=== PATIENT | male | born 1955 | race Caucasian/White ===

== ENCOUNTER 2017-05-08 13:13 | Outpatient (CLI) | payer BC ==
--- NOTE | 2017-05-08 15:46 | RAD ---
EXAM: FOUR VIEWS CERVICAL SPINE 05/08/17 HISTORY: Cervical radiculopathy. Cervical fusion six years ago. COMPARISON: 12/09/13 FINDINGS: Four views cervical spine demonstrate straightening of the normal cervical lordosis. There is an ant erior fusion plate with transvertebral screw at C3, C4 and C5 through C7. No perihardware lucency. D isc prosthesis at C3-C4, C5-C6 and C6-7. On the swimmer's view, the cervicothoracic junction appears to be unremarkable. Predental space is normal. Limited evaluation of the odontoid process on the open mouth projection. The lateral masses of C1 and C2 articulate appropriately. On the AP projection, no malalignment. Mild degenerative changes in the posterior elements are noted . IMPRESSION: 1. Uncomplicated cervical fusion. 2. Grade I retrolisthesis of C4 upon C5. POS: [facility]
== END 2017-05-08 13:14 | disposition home or self-care (01) ==
LOC: TBSIIMAG 13:13
PROVIDERS: ATTEND Neurological Surgery
DX: M54.12 Radiculopathy, cervical region (principal); Z98.1 Arthrodesis status
CPT/HCPCS: 72040

== ENCOUNTER 2018-04-21 07:37 | Outpatient (CLI) | payer BC ==
--- NOTE | 2018-04-21 09:25 | CT ---
CT CERVICAL SPINE WITHOUT CONTRAST: COMPARISON: 10/17/2015 HISTORY: Cervical fusion. Neck pain. FINDINGS: There is an anterior fusion plate with a transvertebral body screw at C3 and C4, as well as a second anterior fusion plate with transvertebral body screw at C5, C6, and C7. Disk prostheses at C5-C6 and C6-C7. There is no perihardware lucency. There is retrolisthesis of C4 upon C5 (approximately 1.6 mm). There is also a disk prosthesis at C3-C4. There is no prevertebral soft tissue swelling. The visualized lung apices and upper mediastinum are unremarkable. Craniocervical dissociation is not present. There is appropriate alignment of the lateral masses of C1 and C2, as well as the facets. Intact odo ntoid process. Limited evaluation of the contents of the central spinal canal and neural foramina by technique. C2-C3: No significant disk osteophyte complex. No significant central canal stenosis or foraminal n arrowing. C3-C4: Central osteophyte complex superimposed upon a generalized osteophyte ridge. No significant central canal stenosis. Mild right foraminal narrowing. The left neural foramen is patent. C4-C5: Broad-based disk osteophyte complex abuts the thecal sac. Mild central canal stenosis. Mode rate right and mild to moderate left foraminal narrowing. C5-C6: Broad disk osteophyte ridge. Mild to moderate central canal stenosis. Mild to moderate righ t and mild left foraminal narrowing. C6-C7: No significant central canal stenosis. The right neural foramen is patent. Mild left forami nal narrowing. C7-T1: No significant disk osteophyte complex. No significant central canal stenosis. The neural f oramina are patent. IMPRESSION: 1. Degenerative changes of the cervical spine, as above. 2. Fusion changes as above. POS: [facility]
== END 2018-04-21 07:38 | disposition home or self-care (01) ==
LOC: TBSIIMAG 07:37
PROVIDERS: ATTEND Neurological Surgery
DX: M54.2 Cervicalgia (principal); M47.892 Other spondylosis, cervical region; Z98.1 Arthrodesis status
CPT/HCPCS: 72125

== ENCOUNTER 2018-05-08 06:11 | Day surgery (SDC) | payer BC ==
--- NOTE | 2018-05-07 21:12 | HP ---
HISTORY OF PRESENT ILLNESS: Mr. Elaine is gentleman known to us for previous ACDF, who presents now w ith a severe right C7 radiculopathy that has been treated nonsurgically with medications, physical th erapy and injections, but continues to struggle significantly with the degree of pain that he is expe riencing. He has a CT scan from [place] that reveals severe bony stenosis to the right at C6-7 wh ich would match well with symptoms. PAST MEDICAL HISTORY: Significant for no major medical history. CURRENT MEDICATIONS: [place] [facility] PAST SURGICAL HISTORY: ACDF. ALLERGIES: CODEINE. PHYSICAL EXAMINATION: GENERAL: Patient is alert and oriented x3. EXTREMITIES: Spurling's is positive to the right. He has normal motor function in bilateral upper e xtremities otherwise. PLAN: Dr. Valerio met with the patient, reviewed imaging ultimately advocated for a posterior C6-7 for aminotomy. He explained to the patient the risks, benefits, and alternatives of the procedure. The patient expressed understanding and would like to move forward with surgery as discussed. I do belie ve the patient is mentally competent and capable of making medical decisions for himself. We will mo ve forward with surgery as planned.
[2018-05-08] MEDS ORDERED: CEFAZOLIN/Water 2 GM/20 ML SYRINGE ONE ×2 (06:17→12:48)
[2018-05-08] MEDS ORDERED: Fentanyl 250 MCG/5 ML VIAL ONE (06:40)
[2018-05-08] MEDS ORDERED: Thrombin 5000 UNITS/5 ML VIAL ONE (06:44)
[2018-05-08] MEDS ORDERED: Bupivacaine HCl 0.5%/Epinephrine 1:200,000/PF 30 ml Vial ONE (06:44)
[2018-05-08] MEDS ORDERED: Midazolam HCl 2 mg/2 ml Vial ONE (07:25)
[2018-05-08] MEDS ORDERED: Fentanyl 100 MCG/2 ML VIAL ONE (09:44)
[2018-05-08] MEDS ORDERED: Tamsulosin HCl 0.4 MG CAP ONE (09:53)
[2018-05-08] MEDS ORDERED: PROPOFOL 200 MG/20 ML VIAL ONE (10:00)
[2018-05-08] MEDS ORDERED: Glycopyrrolate 0.2 MG/ML 5 ML SYRINGE ONE (10:00)
[2018-05-08] MEDS ORDERED: Lidocaine 1% PF 5 ML VIAL ONE (10:00)
[2018-05-08] MEDS ORDERED: Dexamethasone 20 MG/5 ML VIAL ONE (10:00)
[2018-05-08] MEDS ORDERED: Ondansetron HCl/PF 4 MG/2 ML Vial ONE (10:00)
--- NOTE | 2018-05-08 11:20 | OP ---
DATE OF SERVICE: 05/08/2018 SURGEON: Fredy Valerio M.D. LION HUNTER: Tyrone Garcia PA-C. INDICATION: Pain. DIAGNOSIS: Right C7 radiculopathy. PROCEDURE PERFORMED: Right C6-C7 posterior cervical foraminotomy. ANESTHESIA: General. TECHNIQUE: The patient was brought into the operating room and placed under general anesthesia. He was flipped from a supine to a prone position on the operating room table. A linear incision was dorita nned over the C6-C7 segment. After prepping and draping and after an appropriate operative pause, th e incision was created. The soft tissues were swept right of midline. Self-retaining retractors wer e placed into the wound for optimal exposure. After confirming the appropriate level with C-arm fluo roscopy, a hemilaminectomy was performed at the C6-C7 on the right. The laminectomy was extended to encompass the medial half of the facet joint in order to decompress the exiting right C7 nerve root. After decompression, the wound was irrigated. Hemostasis was maintained throughout. The wound was then closed in anatomic layers and a pressure dressing was applied. There were no known procedural c omplications.
[2018-05-08] MEDS ORDERED: Acetaminophen/Codeine 30-300mg Tablet ONE (12:48)
[2018-05-08] MEDS ORDERED: Cyclobenzaprine 10 MG TAB ONE (12:48)
== END 2018-05-08 13:40 | disposition home or self-care (01) ==
LOC: SDC 06:11
PROVIDERS: ATTEND Neurological Surgery
PROC: 01N10ZZ Release Cervical Nerve, Open Approach (ICD-10-PCS; principal; 2018-05-08)
DX: M54.12 Radiculopathy, cervical region (principal); Z88.5 Allergy status to narcotic agent
CPT/HCPCS: 76001; 96374; 96375; J0670; J1100; J2001; J2250; J2405; J2704; J3010

== ENCOUNTER 2018-07-02 14:48 | Outpatient (CLI) | payer BC ==
--- NOTE | 2018-07-02 17:22 | MRI ---
LEFT SHOULDER MRI WITH IV CONTRAST: 07/02/18 HISTORY: 62-year-old male with history of M25.511 - right shoulder pain. Multiplanar and multisequence MRI examination of the right shoulder is performed. Severe AC joint arthrosis changes are noted with some downsloping of the anterior and lateral acromio n with some fluid and fat stranding in the subacromial subdeltoid bursa. There appears to be some int erstitial abnormal signal at the insertion of the supraspinatus tendon which appears to be primarily concealed. There is some associated tendinopathy of the supraspinatus and infraspinatus tendons. Mult iple small subchondral cysts are noted involving the superior glenoid. There appears to be an associa aminata SLAP tear. The biceps tendon appears intact. Small undersurface linear delaminating subscapularis tendon tear with some tendinopathy. No evidence for acute osteochondral defect. IMPRESSION: AC joint arthrosis. Fluid and some fat stranding in the subacromial/subdeltoid bursa. Evidence for an interstitial tear of the supraspinatus tendon extending into the conjoin tendon but without definite extension to the bursal or articular surface possibly representing concealed or mostly concealed tea r. Numerous small superior glenoid subchondral cysts with associated SLAP tear. Very small undersurfa ce linear delaminating tear of the subscapularis tendon with some associated tendinopathy. POS: [facility]
== END 2018-07-02 14:49 | disposition home or self-care (01) ==
LOC: TBSIIMAG 14:48
PROVIDERS: ATTEND Orthopaedic Surgery
DX: M25.511 Pain in right shoulder (principal); M19.011 Primary osteoarthritis, right shoulder; M75.101 Unspecified rotator cuff tear or rupture of right shoulder, not specified as traumatic; M25.811 Other specified joint disorders, right shoulder; S43.431A Superior glenoid labrum lesion of right shoulder, initial encounter; M75.91 Shoulder lesion, unspecified, right shoulder

== ENCOUNTER 2019-12-01 08:39 | Outpatient (CLI) | payer MEDICARE, BC ==
--- NOTE | 2019-12-01 11:01 | MRI ---
MRI cervical spine with and without contrast: DATE: 12/01/2019 HISTORY: 64-year-old male with cervicalgia M 54.2 neck pain, and right cervical radiculopathy. COMPARISON: 03/06/2017 FINDINGS: Previously, there were anterior metallic plates and screws at C5-6-7. That hardware remains, but ther e are now new anterior metallic plate and screws at C3-4. Vertebral body heights are maintained. Cervical spinal cord is normal in size and signal. No high-grade facet DJD at any level from C1-2 thr ough C6-7. C1-2: No central stenosis. C2-3: Disc space maintained. Mild ligamentum flavum thickening. No high-grade central stenosis. Small bilateral uncinate process osteophytes, right greater than left. Again noted is the enhancing epidural material in the right lateral recess extending into the right neural foramen, which contacts and chronically laterally displaces the exiting right C2 nerve root, and also surrounds the right vertebral artery. This is unchanged. Exact etiology is uncertain, but perhaps this represents promine nt venous plexus. There is no bony neural foraminal stenosis. C3-4: Small to moderate-sized right uncinate process osteophytes cause moderate right neural foramina l stenosis. No left neural foraminal stenosis. No high-grade central stenosis. C4-5: The retrolisthesis of C4 on C5 appears minimally worse. This retrolisthesis, along with mild br oad-based disc-osteophytic bar complex abuts and mildly indents the ventral surface of the spinal cord, to a greater degree than previously. Furthermore, the ligamentum flavum thickening, which is un changed in size, abuts the dorsal surface of the spinal cord. There is overall moderate to severe central spinal canal stenosis, minimally worse than previously. Small to moderate-sized bilateral unc inate process osteophytes, together with the retrolisthesis, result in chronic severe right neural foraminal stenosis and moderate left neural foraminal stenosis. C5-6: Large right uncinate process osteophytes and moderate to large left uncinate process osteophyte s, result in moderate to severe right neural foraminal stenosis and mild left neural foraminal stenosis. Mild to moderate central spinal canal stenosis. Unchanged. C6-7: Moderate right uncinate process osteophytes and large left uncinate process osteophytes result in mild to moderate right neural foraminal stenosis and moderate to severe left neural foraminal stenosis. Mild to moderate central spinal canal stenosis. Unchanged. C7-T1: Mild to moderate right facet DJD. Moderate left facet DJD. No high-grade central stenosis. Mod erate bilateral neural foraminal stenosis, left greater than right. No significant interval change. IMPRESSION: 1. Since the prior MRI, in addition to the previous anterior cervical discectomy and fusion hardware at C5-6-7, there is now new anterior cervical discectomy and fusion hardware at C3-4. 2. Mild interval worsening of degenerative disc disease at C4-5, resulting in a greater degree of hig h-grade central spinal canal stenosis at that level. 3. Multilevel neural foraminal stenosis. The worst level is right C4-5 severe neural foraminal stenos is, probably unchanged. There are additional levels of moderate neural foraminal stenosis, also unchanged.
--- NOTE | 2019-12-01 11:22 | MRI ---
MRI OF THE LUMBAR SPINE WITHOUT CONTRAST: INDICATION: A 64-year-old male with low back pain and right lower extremity radiculopathy. COMPARISON: Prior MRI of the lumbar spine from [facility] dated October 28, 2005. FINDINGS: There is a 1.4 cm simple cyst involving the superior pole of the left kidney. There is a partially i sasha T2 hyperintense 2.3 cm prominence of the lower pole of the right kidney which may reflect an ex trarenal pelvis versus an exophytic cyst off the medial aspect of the lower pole of the right kidney. A 1.6 cm cyst was seen involving the inferior pole of the right kidney on a comparison ultrasound d ated 04/26/2010. No lymphadenopathy is grossly evident. At L5-S1, there is a mild broad-based bulge with a superimposed central disk protrusion. There is no appreciable central canal or neural foraminal narrowing. At L4-5, there is a broad-based bulge with facet hypertrophy and loss of disk space height inducing m ild bilateral neural foraminal narrowing. At L3-4, there is a mild broad-based bulge with facet hypertrophy, but no appreciable central canal o r neural foraminal narrowing. At L2-3, there is a broad-based bulge with facet hypertrophy, but no appreciable central canal or marissa ral foraminal narrowing. At L1-2, there is no appreciable central canal or neural foraminal narrowing. At T12-L1, there is no appreciable central canal or neural foraminal narrowing. IMPRESSION: 1. Interval worsening of the mild multilevel spondylosis of the lumbar spine. 2. T2 hyperintense lesion involving the right kidney suspicious for an enlarging cyst increased in s ize from a comparison abdominal ultrasound dated 09/28/2015 from [facility]. Renal ult rasound may be helpful for additional characterization. POS: [facility]
== END 2019-12-01 08:40 | disposition home or self-care (01) ==
LOC: TBSIIMAG 08:39
PROVIDERS: ATTEND Neurological Surgery
DX: M54.2 Cervicalgia (principal); M54.5 Low back pain; M79.604 Pain in right leg; M47.816 Spondylosis without myelopathy or radiculopathy, lumbar region; N28.9 Disorder of kidney and ureter, unspecified; M48.02 Spinal stenosis, cervical region; M50.321 Other cervical disc degeneration at C4-C5 level; Z98.1 Arthrodesis status
CPT/HCPCS: 72148; 72156; 82565

== ENCOUNTER 2020-01-05 06:54 | Outpatient (CLI) | payer MEDICARE, BC, OTHER ==
[2020-01-05 18:32] LABS: SARS-CoV-2 MS2 Positive; SARS-CoV-2 N Gene Negative; SARS-CoV-2 S Gene Negative; SARS-CoV-2 orf1ab Negative
== END 2020-01-05 06:55 | disposition home or self-care (01) ==
LOC: LABBT 06:54
PROVIDERS: ATTEND Neurological Surgery
DX: Z01.812 Encounter for preprocedural laboratory examination (principal); Z11.59 Encounter for screening for other viral diseases; M54.12 Radiculopathy, cervical region
CPT/HCPCS: 87635; U0003

== ENCOUNTER 2020-01-07 07:09 | Day surgery (SDC) | payer MEDICARE, BC ==
[2020-01-05 13:19] VITALS: BMI 27.9
--- NOTE | 2020-01-07 07:29 | HP ---
HISTORY OF PRESENT ILLNESS: Mr. Elaine is a pleasant 64-year-old man known to us for prior ACDF and posterior cervical foraminotomy. He returns now with persistent pains that would fit a C5 pattern. He has been attempting conservative therapies in the way of therapy and medications, has not had epidural steroid injection because in the past, it did not help him before. He hopes to discuss possible surgical intervention. He has a new MRI that reveals severe foraminal stenosis at C4-C5 that would explain his symptoms well. PAST MEDICAL HISTORY: No major medical problems. CURRENT MEDICATIONS: [place]. PAST SURGICAL HISTORY: ACDF and laminectomy. ALLERGIES: TO CODEINE. PHYSICAL EXAMINATION: The patient's exam is deferred secondary to tele health visit. PLAN: Dr. Valerio met with the patient, reviewed imaging, and advocated for a C4-C5 ACDF. He explained to the patient the risks, benefits, and alternatives to the procedure. The patient expressed understanding and elected to move forward with surgery as discussed. I do believe that the patient is mentally competent and capable of making medical decisions for himself. We will move forward with surgery as planned. Job ID: [id number]
[2020-01-07] MEDS ORDERED: Thrombin 5000 UNITS/5 ML VIAL ONE (10:15)
[2020-01-07] MEDS ORDERED: Fentanyl 100 MCG/2 ML VIAL ONE ×3 (10:25→11:52)
[2020-01-07] MEDS ORDERED: SUGAMMADEX SODIUM 200 MG/2 ML VIAL ONE (10:25)
[2020-01-07] MEDS ORDERED: Rocuronium Bromide 10 MG/ML (10ML VIAL) ONE (11:52)
[2020-01-07] MEDS ORDERED: PROPOFOL 200 MG/20 ML VIAL ONE (11:52)
[2020-01-07] MEDS ORDERED: Ondansetron PF 4 MG/2 ML Vial ONE (11:52)
[2020-01-07] MEDS ORDERED: Lidocaine 1% PF 5 ML VIAL ONE (11:52)
[2020-01-07] MEDS ORDERED: Tamsulosin HCl 0.4 MG CAP ONE (12:37)
[2020-01-07] MEDS ORDERED: HYDROcodone/Acetaminophen 5/325 mg Tablet ONE (13:35)
--- NOTE | 2020-01-07 14:35 | OP ---
DATE OF PROCEDURE: 01/07/2020 CHEESE SPRAYER: Tyrone Garcia PA-C INDICATION: Pain. DIAGNOSIS: Cervical radiculopathy. PROCEDURES PERFORMED: Reoperation, exploration of fusion, anterior cervical diskectomy, C4-C5. ANESTHESIA: General. DESCRIPTION OF PROCEDURE: The patient was brought into the operating room and placed under general anesthesia. He was placed on table in a supine position. A transverse incision that he previously had was localized and prepped and draped. After an appropriate preoperative pause, the incision was created. The underlying platysma muscle was identified and incised. A blunt tissue plane anterior to the sternocleidomastoid muscle was used to gain access to the prevertebral space. Self-retaining retractors were placed. Ectopic bone from adjacent fusion sites identified and carefully removed. Following exploration of this area of fusion, we were given access to the C4-C5 disk space, where disk material including anterior and posterior osteophytes were removed. A laminar distractor was placed for a slight degree of distraction. A 7-mm lordotic PEEK cage packed with allograft and autograft material was then placed within the interbody space. No anterior cervical plate was placed secondary to adjacent plates. The wound was irrigated. Hemostasis was maintained throughout. The wound was then closed in anatomic layers and a pressure dressing was applied. There were no known procedural complication. Job ID: [id number]
== END 2020-01-07 14:50 | disposition home or self-care (01) ==
LOC: SDC 07:09
PROVIDERS: ATTEND Neurological Surgery
PROC: 0RG10A0 Fusion of Cervical Vertebral Joint with Interbody Fusion Device, Anterior Approach, Anterior Column, Open Approach (ICD-10-PCS; principal; 2020-01-07)
PROC: 0RT30ZZ Resection of Cervical Vertebral Disc, Open Approach (ICD-10-PCS; 2020-01-07)
DX: M54.12 Radiculopathy, cervical region (principal); F17.290 Nicotine dependence, other tobacco product, uncomplicated; M19.90 Unspecified osteoarthritis, unspecified site; Z98.1 Arthrodesis status
CPT/HCPCS: 20930; 20936; 22551; 22853; 76000; C1776; J0690; J2001; J2405; J2704; J3010

== ENCOUNTER 2020-04-05 07:49 | Outpatient (CLI) | payer MEDICARE, BC ==
--- NOTE | 2020-04-05 08:41 | CT ---
EXAM: CT cervical spine PROVIDED CLINICAL HISTORY: Cervical radiculopathy. History of prior neck surgeries. Patient complains of pain between shoulder b lades. TECHNIQUE: Contiguous axial CT images are obtained through the cervical spine from the skull base to the T3-4 le mónica. Sagittal and coronal reformatted images are provided. COMPARISON: 04/21/2018 FINDINGS: Again noted are postoperative changes of the cervical spine with evidence of anterior cervical fusion with anterior plate and screws transfixing the C3-4 level as well as anterior plate and screws transfixing the C5-6 and C6-7 levels. Intradiscal prostheses are present at these levels. There has b een interval placement of an intradiscal prosthesis at the C4-5 level. Previously seen slight retrolisthesis of C4 on C5 is not evident on the current study. No hardware complication is seen. There is straightening of the normal cervical lordotic curvature. No fracture or traumatic subluxatio n is appreciated. Moderate right-sided neural foraminal narrowing is present at the C4-5 level with mild to moderate right-sided neural foraminal narrowing at C5-6 level related to facet hypertrophic c hanges as well as osteophyte formation. Mild left-sided neural foraminal narrowing is present at the C6-7 level. Slight effacement of the ventral subarachnoid space is present at C5-6 and to a lesse r extent C6-7 levels related to posterior osteophyte formation. These findings are unchanged from prior exam. No prevertebral soft tissue swelling apparent. Visualized lung apices appear clear. Visualized thyroid gland demonstrates a grossly normal nonenhanced CT appearance. Mucous retention cyst is present in the left maxillary antrum. Vascular calcifications are seen. IMPRESSION: 1. Degenerative and postoperative changes of the cervical spine. There has been interval placement of an intradiscal prosthesis at the C4-5 level compared to prior study..
== END 2020-04-05 07:50 | disposition home or self-care (01) ==
LOC: TBSIIMAG 07:49
PROVIDERS: ATTEND Neurological Surgery
DX: M47.22 Other spondylosis with radiculopathy, cervical region (principal); Z98.1 Arthrodesis status
CPT/HCPCS: 72125

== ENCOUNTER 2020-11-24 09:42 | Outpatient (CLI) | payer MEDICARE, BC | END 2020-11-24 09:43 | disposition home or self-care (01) | LOC: TBSIIMAG 09:42 | PROVIDERS: ATTEND Neurological Surgery | DX: M54.12 Radiculopathy, cervical region (principal); M48.02 Spinal stenosis, cervical region; Z98.890 Other specified postprocedural states | CPT/HCPCS: 72141 ==

== ENCOUNTER 2020-12-21 09:24 | Outpatient (CLI) | payer MEDICARE, BC | END 2020-12-21 09:25 | disposition home or self-care (01) | LOC: TBSIIMAG 09:24 | PROVIDERS: ATTEND Neurological Surgery | DX: M54.14 Radiculopathy, thoracic region (principal) | CPT/HCPCS: 72146 ==

== ENCOUNTER 2022-02-03 16:16 | Observation (INO) | payer MEDICARE, BC ==
[2022-02-03 18:21] VITALS: BMI 29.4
[2022-02-03] MEDS ORDERED: Acetaminophen 325 MG TAB PO PRN (19:05)
[2022-02-03] MEDS ORDERED: Oxymetazoline HCl 0.05% (30 ML BOT) NS PRN (19:30)
[2022-02-03] MEDS ORDERED: Pseudoephedrine HCl 30 MG TAB PO PRN (19:30)
[2022-02-03] MEDS ORDERED: Aspirin 325 mg Enteric Coated Tablet PO SCH (19:30)
[2022-02-03] MEDS ORDERED: Nitroglycerin 0.4 MG TAB (25 Tab Bottle) SL PRN (19:47)
[2022-02-03 20:31] LABS: Troponin I Less than 0.010 ng/mL (< 0.028)
[2022-02-03] MEDS ORDERED: Atorvastatin Calcium 40 MG TAB PO SCH (21:00)
[2022-02-03 21:16] LABS: SARS-CoV-2 NAA Rapid Test Not Detected (NotDetected)
[2022-02-03] MEDS: Famotidine 20 MG TAB PO SCH (21:45)
[2022-02-03 21:47] LABS: Troponin I Less than 0.010 ng/mL (< 0.028)
[2022-02-04 00:29] LABS: Troponin I Less than 0.010 ng/mL (< 0.028)
[2022-02-04 05:10] LABS: #Eosinphils 0.5 thou/uL (0.0-0.7); #Lymphocytes 1.3 thou/uL (1.20-3.40); #Neutrophils 5.6 thou/uL (1.40-6.50); %Basophils 0.6 % (0.0-1.0); %Eosinophils 5.5 % (0.0-10.0); %Lymphocytes 15.8 % (21.0-51.0); %Monocytes 11.3 % (0.0-10.0); %Neutrophils 66.8 % (42.0-75.0); Hemoglobin 16.3 g/dL (14.0-18.0); Mean Corpuscular HGB CONC 32.6 g/dL (32.0-36.0); Mean Corpuscular Hemoglobin 33.5 pg (27.0-31.0); Mean Platelet Volume 7.8 fL (7.4-10.4); Platelet Count 205 thou/uL (130-400); RBC Distribution Width 11.9 % (11.5-14.5); Red Blood Cell (RBC) Count 4.88 mill/uL (4.70-6.10); White Blood Cell (WBC) Count 8.4 thou/uL (4.8-10.8)
[2022-02-04 05:33] LABS: Anion Gap 13 mmol/L (10-20); BUN (Urea Nitrogen) 15 mg/dL (8.4-25.7); Calc. Creatinine Clearance 97 mL/min (70-130); Calcium 9.1 mg/dL (7.8-10.44); Carbon Dioxide 27 mmol/L (23-31); Chloride 104 mmol/L (98-107); Estimated GFR 86; Glucose 88 mg/dL (80-115); Potassium 4.3 mmol/L (3.5-5.1); Sodium 140 mmol/L (136-145)
[2022-02-04] MEDS ORDERED: ADENOSINE 60 MG/20 ML VIAL ONE (07:33)
[2022-02-04] MEDS ORDERED: Aspirin 81 mg Enteric Coated Tablet PO SCH (09:00)
[2022-02-04] MEDS ORDERED: Enoxaparin Sodium 40 MG/0.4 ML SYRINGE SC SCH (09:00)
[2022-02-04 13:48] VITALS: TEMP 97.6
[2022-02-04] MEDS: Famotidine 20 MG TAB PO SCH (13:49)
[2022-02-04 16:08] VITALS: BP 164/91
== END 2022-02-04 16:30 | disposition home or self-care (01) ==
LOC: 2SW 17:52
PROVIDERS: ADMIT Family Medicine; ATTEND Family Medicine
DX: R07.89 Other chest pain (principal); I25.10 Atherosclerotic heart disease of native coronary artery without angina pectoris; R06.02 Shortness of breath; Z66 Do not resuscitate; Z98.1 Arthrodesis status; Z20.822 Contact with and (suspected) exposure to COVID-19
CPT/HCPCS: 78452; 80048; 84484; 85025; 93005; 93017; 93306; A9500; U0002; 36415; 93010; 96372; 96375; 96376; G0378; J0153; J1650

== ENCOUNTER 2022-10-04 06:08 | Day surgery (SDC) | payer MEDICARE, BC ==
[2022-10-02 12:12] VITALS: BMI 27.9
[2022-10-04] MEDS ORDERED: Sodium Chloride 0.9% 100 ML ONE ×2 (07:13→12:58)
[2022-10-04] MEDS ORDERED: CEFAZOLIN 2 GM VIAL ONE ×2 (07:13→12:58)
[2022-10-04] MEDS ORDERED: Lidocaine 1% MPF 2 ML VIAL ONE (07:14)
[2022-10-04] MEDS ORDERED: Thrombin 5000 UNITS/5 ML VIAL ONE (08:23)
[2022-10-04] MEDS ORDERED: HYDROmorphone 0.5 MG/0.5 ML SYRINGE ONE (08:27)
[2022-10-04] MEDS ORDERED: fentaNYL PF 100 MCG/2 ML SYRINGE ONE (08:27)
[2022-10-04] MEDS ORDERED: Dexamethasone 20 MG/5 ML VIAL ONE (08:50)
[2022-10-04] MEDS ORDERED: ePHEDrine 50 MG/ML VIAL ONE (08:50)
[2022-10-04] MEDS ORDERED: Metoclopramide HCl 10 MG/2 ML VIAL ONE (08:50)
[2022-10-04] MEDS ORDERED: PROPOFOL 200 MG/20 ML VIAL ONE (08:50)
[2022-10-04] MEDS ORDERED: Ondansetron PF 4 MG/2 ML Vial ONE (08:50)
[2022-10-04] MEDS ORDERED: Rocuronium Bromide 10 MG/ML (10ML VIAL) ONE (08:50)
[2022-10-04] MEDS ORDERED: PHENYLEPHRINE-NS 100 MCG/ML 10 ML SYRINGE ONE (08:50)
[2022-10-04] MEDS ORDERED: Lidocaine 1% PF 5 ML VIAL ONE (08:50)
[2022-10-04] MEDS ORDERED: Ketorolac Tromethamine 30 MG/ML VIAL ONE (08:50)
[2022-10-04] MEDS ORDERED: Tamsulosin HCl 0.4 MG CAP ONE (10:56)
[2022-10-04] MEDS ORDERED: Fentanyl 100 MCG/2 ML VIAL ONE (11:13)
[2022-10-04] MEDS ORDERED: HYDROcodone/Acetaminophen 5/325 mg Tablet ONE (13:11)
[2022-10-04] MEDS ORDERED: Cyclobenzaprine 10 MG TAB ONE (13:40)
== END 2022-10-04 14:00 | disposition home or self-care (01) ==
LOC: SDC 06:08
PROVIDERS: ATTEND Neurological Surgery
PROC: 0PJY0ZZ Inspection of Upper Bone, Open Approach (ICD-10-PCS; principal; 2022-10-04)
PROC: 0RG40A0 Fusion of Cervicothoracic Vertebral Joint with Interbody Fusion Device, Anterior Approach, Anterior Column, Open Approach (ICD-10-PCS; 2022-10-04)
DX: M50.13 Cervical disc disorder with radiculopathy, cervicothoracic region (principal); F17.290 Nicotine dependence, other tobacco product, uncomplicated; Z98.1 Arthrodesis status
CPT/HCPCS: 20930; 20936; 22551; 22830; 22845; 22853; C1713 ×3; C1889; J1100; J1170; J1885; J2405; J2704; J2765; J3010; J3490

== ENCOUNTER 2022-11-29 13:27 | Outpatient (CLI) | payer MEDICARE, BC | END 2022-11-29 13:28 | disposition home or self-care (01) | LOC: CT 13:27 | PROVIDERS: ATTEND Neurological Surgery | DX: M54.2 Cervicalgia (principal); M47.812 Spondylosis without myelopathy or radiculopathy, cervical region; M47.813 Spondylosis without myelopathy or radiculopathy, cervicothoracic region; M50.31 Other cervical disc degeneration, high cervical region; Z98.1 Arthrodesis status | CPT/HCPCS: 72125 ==

== ENCOUNTER 2023-02-21 09:37 | Inpatient (IN) | payer MEDICARE, BC ==
[2023-02-21] MEDS ORDERED: Iopamidol-370 76% 500 ML MDV (1 ML CHARGE) ONE (10:31)
[2023-02-21 10:39] LABS: Hemoglobin 19.4 g/dL (14.0-18.0); Mean Corpuscular HGB CONC 35.8 g/dL (32.0-36.0); Mean Corpuscular Hemoglobin 32.6 pg (27.0-31.0); Mean Corpuscular Volume 91.1 fl (78.0-98.0); Mean Platelet Volume 10.3 fL (7.4-10.4); Platelet Count 227 10x3/uL (130-400); RBC Distribution Width 12.9 % (11.5-14.5); Red Blood Cell (RBC) Count 5.95 mill/uL (4.70-6.10)
[2023-02-21 10:58] LABS: Delete Auto Diff?? YES; Manual Diff?? YES
[2023-02-21 11:03] LABS: ALT (SGPT) 32 U/L (8-55); AST (SGOT) 35 U/L (5-34); Albumin 4.5 g/dL (3.4-4.8); Alkaline Phosphatase 79 U/L (40-110); Anion Gap 26 mmol/L (10-20); BUN (Urea Nitrogen) 62 mg/dL (8.4-25.7); Bilirubin, Total 0.6 mg/dL (0.2-1.2); Calc. Creatinine Clearance 0 mL/min (70-130); Calcium 9.5 mg/dL (7.8-10.44); Carbon Dioxide 15 mmol/L (23-31); Chloride 90 mmol/L (98-107); Estimated GFR 9; Globulin 4.1 g/dL (2.4-3.5); Glucose 160 mg/dL (80-115); Lipase 28 U/L (8-78); Magnesium 2.3 mg/dL (1.6-2.6); Potassium 3.2 mmol/L (3.5-5.1); Protein, Total 8.6 g/dL (5.8-8.1); Sodium 128 mmol/L (136-145)
[2023-02-21 11:43] LABS: Band 48 % (5-11); CellaVision Operator ID LAB.GE; Lymphocytes 6 % (21-51); Metamyelocyte 11 % (0-0); Monocytes 12 % (0-10); Neutrophil 10 % (42-75); Platelet Adequacy Comment Platelets Normal; Polychromasia SLIGHT = 2-3 cells HPF (0-2); Reactive Lymphocytes 12 % (0-10); Total Cell Count 99; Vacuoles MODERATE
[2023-02-21] MEDS ORDERED: metroNIDAZOLE 500 MG/100 ML BAG ONE (12:20)
[2023-02-21] MEDS ORDERED: cefTRIAXone (ROCEPHIN) 1 GM VIAL ONE (12:20)
[2023-02-21] MEDS ORDERED: Sodium Chloride 0.9% 1,000 ML IV SCH ×2 (12:45→14:00)
[2023-02-21] MEDS ORDERED: Ondansetron ODT 4 MG TAB PO PRN (13:46)
[2023-02-21] MEDS ORDERED: Ondansetron PF 4 MG/2 ML Vial IVP PRN (13:46)
[2023-02-21] MEDS ORDERED: Acetaminophen 325 MG TAB PO PRN (13:46)
[2023-02-21] MEDS ORDERED: Acetaminophen 650 MG Suppository PR PRN (13:46)
[2023-02-21 13:52] LABS: Bacteria/HPF 2+ HPF (None Seen); Bilirubin Negative (Negative); Blood, Urine 3+ (Negative); CAUTI Indications for Culture Alt mental st,lethar; Clarity Turbid (Clear); Glucose, Urine (Dipstick) Normal (Negative); Ketone, Urine Negative (Negative); Leukocyte Negative Leu/uL (Negative); Mucous/LPF Rare LPF (<2+); Nitrite Negative (Negative); Protein, Urine (Dipstick) 100 mg/dL (Neg-Trace); Squamous Epithelial 0-3 HPF (0-3); Urobilinogen Normal mg/dL (Less than 2); WBC/HPF 0-3 HPF (0-3); pH, Urine 5.5 (5.0-9.0)
[2023-02-21 13:53] LABS: Specific Gravity, Urine 1.044 (1.002-1.036)
[2023-02-21 13:54] LABS: Urine Culture Reflex No No
[2023-02-21 17:47] VITALS: BMI 25.7
[2023-02-21] MEDS: Sodium Chloride 0.9% 1,000 ML IV SCH (18:04)
[2023-02-21] MEDS: metroNIDAZOLE 500 MG in Premix Bag 1 BAG IVPB SCH (20:55)
[2023-02-21] MEDS ORDERED: Dicyclomine 10 MG/5 ML ORAL SOLN PO SCH (21:30)
[2023-02-21 23:29] LABS: Campy jejuni + coli by PCR Negative (Negative); STEC Shiga Toxin 1+2 Negative (Negative); Salmonella spp. by PCR POSITIVE (Negative); Shigella spp + EIEC by PCR Negative (Negative)
[2023-02-22] MEDS: Sodium Chloride 0.9% 1,000 ML IV SCH ×4 (00:58→21:19)
[2023-02-22] MEDS: metroNIDAZOLE 500 MG in Premix Bag 1 BAG IVPB SCH (05:54)
[2023-02-22 06:46] LABS: #Monocytes 1.4 thou/uL (0.11-0.59); #Neutrophils 6.8 thou/uL (1.40-6.50); %Basophils 0.4 % (0.0-1.0); %Eosinophils 0.3 % (0.0-10.0); %Lymphocytes 5.9 % (21.0-51.0); %Neutrophils 76.6 % (42.0-75.0); Mean Corpuscular HGB CONC 34.7 g/dL (32.0-36.0); Mean Corpuscular Hemoglobin 32.3 pg (27.0-31.0); Platelet Count 188 10x3/uL (130-400); RBC Distribution Width 13.1 % (11.5-14.5); Red Blood Cell (RBC) Count 4.89 mill/uL (4.70-6.10); White Blood Cell (WBC) Count 8.9 10x3/uL (4.8-10.8)
[2023-02-22 07:06] LABS: Hemoglobin 15.8 g/dL (14.0-18.0)
[2023-02-22 07:07] LABS: Manual Diff?? YES
[2023-02-22] MEDS: Albuterol 200 PUFF (6.7GM INHALER) INH SCH ×2 (07:45→17:10)
[2023-02-22 07:49] LABS: ALT (SGPT) 23 U/L (8-55); AST (SGOT) 28 U/L (5-34); Albumin 3.6 g/dL (3.4-4.8); Alkaline Phosphatase 61 U/L (40-110); Anion Gap 15 mmol/L (10-20); BUN (Urea Nitrogen) 51 mg/dL (8.4-25.7); Bilirubin, Total 0.4 mg/dL (0.2-1.2); Calc. Creatinine Clearance 30 mL/min (70-130); Calcium 8.4 mg/dL (7.8-10.44); Carbon Dioxide 20 mmol/L (23-31); Chloride 98 mmol/L (98-107); Estimated GFR 25; Globulin 2.9 g/dL (2.4-3.5); Glucose 101 mg/dL (80-115); Potassium 2.8 mmol/L (3.5-5.1); Protein, Total 6.5 g/dL (5.8-8.1); Sodium 130 mmol/L (136-145)
[2023-02-22 08:17] LABS: Band 9 % (5-11); Burr Cells SLIGHT = 2-5 cells HPF (0-1); CellaVision Operator ID LAB.NR; Lymphocytes 4 % (21-51); Monocytes 7 % (0-10); Neutrophil 80 % (42-75); Platelet Adequacy Comment Platelets Normal; Polychromasia SLIGHT = 2-3 cells HPF (0-2); Total Cell Count 101
[2023-02-22] MEDS: Potassium Chloride 20 MEQ in Premix Bag 1 BAG IVPB SCH ×3 (09:13→16:08)
[2023-02-22] MEDS ORDERED: cefTRIAXone\\ROCEPHIN 1 GM in Sodium Chloride 0.9% 100 ML IVPB SCH (13:00)
[2023-02-23] MEDS: Sodium Chloride 0.9% 1,000 ML IV SCH (04:23)
[2023-02-23 07:26] LABS: #Basophils 0.1 thou/uL (0.0-0.2); #Eosinphils 0.1 thou/uL (0.0-0.7); #Monocytes 1.3 thou/uL (0.11-0.59); #Neutrophils 5.9 thou/uL (1.40-6.50); %Lymphocytes 7.2 % (21.0-51.0); %Monocytes 15.9 % (0.0-10.0); %Neutrophils 73.2 % (42.0-75.0); Mean Corpuscular HGB CONC 34.1 g/dL (32.0-36.0); Mean Corpuscular Hemoglobin 31.8 pg (27.0-31.0); Mean Corpuscular Volume 93.2 fl (78.0-98.0); Platelet Count 168 10x3/uL (130-400); RBC Distribution Width 13.1 % (11.5-14.5); Red Blood Cell (RBC) Count 4.72 mill/uL (4.70-6.10)
[2023-02-23] MEDS: Albuterol 200 PUFF (6.7GM INHALER) INH SCH (07:36)
[2023-02-23 07:55] VITALS: BP 118/72; TEMP 97.9
[2023-02-23 07:57] LABS: ALT (SGPT) 20 U/L (8-55); AST (SGOT) 31 U/L (5-34); Albumin 3.2 g/dL (3.4-4.8); Alkaline Phosphatase 51 U/L (40-110); Anion Gap 13 mmol/L (10-20); BUN (Urea Nitrogen) 27 mg/dL (8.4-25.7); Bilirubin, Total 0.4 mg/dL (0.2-1.2); Calc. Creatinine Clearance 59 mL/min (70-130); Calcium 8.3 mg/dL (7.8-10.44); Carbon Dioxide 22 mmol/L (23-31); Chloride 103 mmol/L (98-107); Estimated GFR 55; Globulin 2.5 g/dL (2.4-3.5); Glucose 76 mg/dL (80-115); Potassium 3.2 mmol/L (3.5-5.1); Protein, Total 5.7 g/dL (5.8-8.1); Sodium 135 mmol/L (136-145)
[2023-02-23] MEDS ORDERED: Potassium Chloride 20 MEQ TAB PO SCH (09:15)
== END 2023-02-23 10:52 | disposition home or self-care (01) | DRG 872 ==
LOC: ERS 09:37 → T4-A 12:38
PROVIDERS: ADMIT Family Medicine; ATTEND Internal Medicine
DX: A41.9 Sepsis, unspecified organism (principal); A02.0 Salmonella enteritis; E87.1 Hypo-osmolality and hyponatremia; N17.9 Acute kidney failure, unspecified; E87.20 Acidosis, unspecified; R65.20 Severe sepsis without septic shock; K21.9 Gastro-esophageal reflux disease without esophagitis; F10.90 Alcohol use, unspecified, uncomplicated; E87.6 Hypokalemia; R79.89 Other specified abnormal findings of blood chemistry; Z88.5 Allergy status to narcotic agent; E86.0 Dehydration; Z79.899 Other long term (current) drug therapy; Z98.1 Arthrodesis status; Z82.49 Family history of ischemic heart disease and other diseases of the circulatory system; N18.30 Chronic kidney disease, stage 3 unspecified
CPT/HCPCS: 36415; 74177; 80053; 81001; 83605; 83690; 83735; 85025; 87040; 87324; 87449; 87505; 96365; 96367; J0696; J3480; J3490; J7050; Q9967

== ENCOUNTER 2024-02-11 14:25 | Outpatient (CLI) | payer MEDICARE, BC ==
[2024-02-11 15:53] LABS: #Basophils 0.08 10x3/uL (0.0-0.2); #Eosinphils 0.18 10x3/uL (0.0-0.5); #Monocytes 0.83 10x3/uL (0.0-1.1); #Neutrophils 5.78 10x3/uL (1.5-8.4); %Basophils 0.9 % (0.0-2.0); %Eosinophils 2.1 % (0.0-6.0); %Lymphocytes 19.5 % (18.0-47.0); %Monocytes 9.6 % (0.0-10.0); %Neutrophils 67.2 % (40.0-75.0); Hematocrit 47.8 % (38.8-50.0); Hemoglobin 16.8 g/dL (13.5-17.5); Mean Corpuscular HGB CONC 35.1 g/dL (32.0-36.0); Mean Corpuscular Hemoglobin 34.1 pg (27.0-33.0); Mean Platelet Volume 10.2 fL (7.4-10.4); Platelet Count 234 10x3/uL (150-450); RBC Distribution Width 12.1 % (11.5-14.5); Red Blood Cell (RBC) Count 4.93 10x6/uL (4.32-5.72); White Blood Cell (WBC) Count 8.6 10x3/uL (3.5-10.5)
== END 2024-02-11 14:26 | disposition home or self-care (01) ==
LOC: LABBT 14:25
PROVIDERS: ATTEND Orthopaedic Surgery Hand Surgery
DX: Z01.818 Encounter for other preprocedural examination (principal); M19.041 Primary osteoarthritis, right hand
CPT/HCPCS: 85025; 93005; 93010

== ENCOUNTER 2024-02-13 07:48 | Day surgery (SDC) | payer MEDICARE, BC ==
[2024-02-11 15:29] VITALS: BMI 29.5
[2024-02-13] MEDS ORDERED: Sodium Chloride 0.9% 100 ML ONE (09:18)
[2024-02-13] MEDS ORDERED: CEFAZOLIN 2 GM VIAL ONE (09:18)
[2024-02-13] MEDS ORDERED: fentaNYL PF 100 MCG/2 ML SYRINGE ONE (10:09)
[2024-02-13] MEDS ORDERED: Ondansetron PF 4 MG/2 ML Vial ONE (10:09)
[2024-02-13] MEDS ORDERED: PROPOFOL 20 ML ONE (10:09)
[2024-02-13] MEDS ORDERED: Lidocaine 1% PF 5 ML VIAL ONE (10:09)
[2024-02-13] MEDS ORDERED: Lidocaine 2% PF 5 ML VIAL ONE (10:31)
[2024-02-13] MEDS ORDERED: Papaverine 60 MG/2 ML VIAL ONE (10:31)
[2024-02-13] MEDS ORDERED: Bupivacaine PF 0.5% 30 ML VIAL ONE (10:31)
[2024-02-13] MEDS ORDERED: Bacitracin Zinc Ointment 30 gm TUBE ONE (10:31)
[2024-02-13] MEDS ORDERED: Glycopyrrolate 0.2 MG/ML 5 ML SYRINGE ONE (10:35)
[2024-02-13] MEDS ORDERED: PHENYLEPHRINE-NS 100 MCG/ML 10 ML SYRINGE ONE (10:35)
[2024-02-13] MEDS ORDERED: Dexamethasone 20 MG/5 ML VIAL ONE (10:59)
[2024-02-13] MEDS ORDERED: Ketorolac Tromethamine 30 MG (1 mL) VIAL ONE (13:26)
[2024-02-13] MEDS ORDERED: fentaNYL 50 mcg/mL 1 mL Vial ONE (13:26)
== END 2024-02-13 15:07 | disposition home or self-care (01) ==
LOC: SDC 07:48
PROVIDERS: ATTEND Orthopaedic Surgery Hand Surgery
PROC: 0PPT04Z Removal of Internal Fixation Device from Right Finger Phalanx, Open Approach (ICD-10-PCS; principal; 2024-02-13)
PROC: 0RBU0ZZ Excision of Right Metacarpophalangeal Joint, Open Approach (ICD-10-PCS; 2024-02-13)
DX: T84.84XA Pain due to internal orthopedic prosthetic devices, implants and grafts, initial encounter (principal); M19.041 Primary osteoarthritis, right hand; Z88.5 Allergy status to narcotic agent; Y79.8 Miscellaneous orthopedic devices associated with adverse incidents, not elsewhere classified
CPT/HCPCS: 20680; 26520; 73140; A6223; C1776; J0665; J1100; J1885; J2405; J2704; J3010; J3490; J2001; J2440

== ENCOUNTER 2025-06-09 14:26 | Outpatient (CLI) | payer MEDICARE, BC | END 2025-06-09 14:27 | disposition home or self-care (01) | LOC: SCSMRI 14:26 | PROVIDERS: ATTEND Orthopaedic Surgery | DX: M47.26 Other spondylosis with radiculopathy, lumbar region (principal); M47.817 Spondylosis without myelopathy or radiculopathy, lumbosacral region; M48.061 Spinal stenosis, lumbar region without neurogenic claudication | CPT/HCPCS: 72148 ==